=== PATIENT | female | born 1930 | race Hispanic/Latino ===

== ENCOUNTER 2017-11-20 21:18 | Emergency (ER) | payer MEDICARE ==
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
[2017-11-20 22:59] VITALS: BP 229/79; PULSE 84; RESP 18; TEMP 97.5; O2SAT 98
== END 2017-11-20 22:20 | disposition home or self-care (01) ==
LOC: C.ER 21:18
DX: I10 Essential (primary) hypertension (principal); Z95.1 Presence of aortocoronary bypass graft